=== PATIENT | female | born 1985 | race Two or more races ===

== ENCOUNTER 2024-11-26 18:45 | Emergency (ER) | payer SELFPAY ==
[~2024-11-26] VITALS: Ht 162.6 cm; Wt 126.1 kg
[2024-11-26 18:55] VITALS: BP 140/105; PULSE 117; RESP 20; TEMP 98.9; O2SAT 99
--- NOTE | 2024-11-26 18:59 | ED.PDOC ---
History of Present Illness HPI Comments 39 year old female with a Hx of Anxiety presents to the ED for the c/c of 11/11 Left Sided Chest Tightness w/ associated Dizziness, N/, and Left Arm Pain. Pt states that her symptoms started this morning, and have progressively worsened, prompting her visit to the ED. Pts BP was noted to be 153/105 in the 120's upon triage assessment. No other associated symptoms, modifiers, recent injuries or sick contacts present at this time. Chief Complaint: High Blood Pressure Time Seen by MD: 18:56 Reviewed Notes: Nurses Notes, Medications, Allergies Information Source: Patient Mode of Arrival: Ambulatory Severity: Moderate Timing: Hours Duration: Since onset, Hours Prehospital treatment: None Past Medical History PAST MEDICAL HISTORY: Anxiety Surgical History: Denies all surgeries [employer] SENIOR ASSOCIATE History: Unknown Family History Family History: Unknown Social History Smoker: Non-Smoker Alcohol: Denies ETOH Use Drugs: Denies Drug Use Lives In: Home Constitutional: denies: chills, diaphoresis, fatigue, fever, malaise, sweats, weakness, others EENTM: denies: blurred vision, double vision, ear bleeding, ear discharge, ear drainage, ear pain, ear ringing, eye pain, eye redness, hearing loss, mouth pain, mouth swelling, nasal discharge, nose bleeding, nose congestion, nose pain, photophobia, tearing, throat pain, throat swelling, voice changes, others Respiratory: denies: cough, hemoptysis, orthopnea, SOB at rest, shortness of breath, SOB with excertion, stridor, wheezing, others Cardiovascular: reports: chest pain; denies: dizzy spells, diaphoresis, Dyspnea on exertion, edema, irregular heart beat, left arm pain, lightheadedness, palpitations, PND, syncope, others Gastrointestinal: reports: nausea; denies: abdomen distended, abdominal pain, blood streaked bowels, constipated, diarrhea, dysphagia, difficulty swallowing, hematemesis, melena, poor appetite, poor fluid intake, rectal bleeding, rectal pain, vomiting, others Genitourinary: denies: abnormal vagina bleeding, burning, dyspareunia, dysuria, flank pain, frequency, hematuria, incontinence, pain, , vagina discharge, urgency, others Neurological: reports: dizziness; denies: fainting, headache, left sided numbness, left sided weakness, numbness, paresthesia, pre-existing deficit, right sided numbness, right sided weakness, seizure, speech problems, tingling, tremors, weakness, others Musculoskeletal: denies: back pain, gout, joint pain, joint swelling, muscle pain, muscle stiffness, neck pain, others Integumetry: denies: bruises, change in color, change in hair/nails, dryness, laceration, lesions, lumps, rash, wounds, others Allergic/Immunocompromised: denies: Difficulty Healing, Frequent Infections, Hives, Itching, others Hematologic/Lymphatic: denies: anemia, blood clots, easy bleeding, easy bruising, swollen glands, others Endocrine: denies: excessive hunger, excessive sweating, excessive thirst, excessive urination, flushing, intolerance to cold, intolerance to heat, unexplained weight gain, unexplained weight loss, others Psychiatric: denies: anxiety, bipolar disorder, depression, hopeless, panic disorder, schizophrenia, sleepless, suicidal, others All Other Systems: Reviewed and Negative Physical Exam General Appearance: Mild Distress, Normal, Obese HEENT: Normal ENT Inspection, Pharynx Normal, TMs Normal Neck: Full Range of Motion, Non-Tender, Normal, Normal Inspection Respiratory: Chest Non-Tender, Lungs Clear, No Accessory Muscle Use, No Respiratory Distress, Normal Breath Sounds Cardiovascular: No Edema, No JVD, No Murmur, Normal Peripheral Pulses, Regular Rate/Rhythm, Tachycardia Breast Exam: Deferred Gastrointestinal: No Organomegaly, Non Tender, No Pulsatile Mass, Normal Bowel Sounds, Soft Genitalia: Deferred Pelvic: Deferred Rectal: Deferred Extremities: No calf tenderness, Normal capillary refill, Normal inspection, Normal range of motion, Non-tender, No pedal edema Musculoskeletal : Apperance: Normal Neurologic: Alert, sales activity manager II-XII nml as Tested, No Motor Deficits, Normal Affect, Normal Mood, No Sensory Deficits Cerebellar Function: Normal Reflexes: Normal Skin: Dry, Normal Color, Warm Lymphatic: No Adenopathy Was a procedure done? Was a procedure done?: No Differential Dx Considerations may include: Differential diagnosis includes but not limited to: angina, myocardial infarction, pulmonary embolus, pleurisy, musculoskeletal etiology and others X-Ray, Labs, Meds, VS Vital Signs Date Time Temp Pulse Resp B/P (MAP) Pulse Ox O2 Delivery O2 Flow Rate FiO2 11/26/24 18:55 98.9 117 20 140/105 (117) 99 98.9 Lab Test 11/26/24 19:08 Range/Units White Blood Count 11.5 H 4.4-10.8 10^3/uL Red Blood Count 5.17 4.0-5.20 10^6/uL Hemoglobin 14.3 12.2-16.2 g/dL Hematocrit 42.8 36.0-46.0 % Mean Corpuscular Volume 82.8 80.0-100.0 fL Mean Corpuscular Hemoglobin 27.7 L 28.0-32.0 pg Mean Corpuscular Hemoglobin Concent 33.4 32.0-36.0 g/dL Red Cell Distribution Width 14.4 H 11.8-14.3 % Platelet Count 358 140-450 10^3/uL Mean Platelet Volume 8.1 6.9-10.8 fL Neutrophils (%) (Auto) 71.3 37.0-80.0 % Lymphocytes (%) (Auto) 21.0 10.0-50.0 % Monocytes (%) (Auto) 4.9 0.0-12.0 % Eosinophils (%) (Auto) 1.7 0.0-7.0 % Basophils (%) (Auto) 1.1 0.0-2.0 % Neutrophils # (Auto) 8.2 1.6-8.6 10 ^3/uL Lymphocytes # (Auto) 2.4 0.4-5.4 10 ^3/uL Monocytes # (Auto) 0.6 0-1.3 10 ^3/uL Eosinophils # (Auto) 0.2 0-0.8 10 ^3/uL Basophils # (Auto) 0.1 0-0.2 10 ^3/uL Nucleated Red Blood Cells 0.2 % Sodium Level 141 136-145 mmol/L Potassium Level 3.6 3.5-5.1 mmol/L Chloride Level 104 98-107 mmol/L Carbon Dioxide Level 25 20-31 mmol/L Anion Gap 12 5-15 Blood Urea Nitrogen 14 9-23 mg/dL Creatinine 0.73 0.550-1.02 mg/dL Glomerular Filtration Rate Calc 109 >90 mL/min BUN/Creatinine Ratio 19.2 10.0-20.0 Serum Glucose 94 74-106 mg/dL Calcium Level 9.6 8.7-10.4 mg/dL Magnesium Level 1.8 1.6-2.6 mg/dL Troponin I High Sensitivity < 3 L </=34 ng/L Time of 1ST Reevaluation: 19:26 Reevaluation 1ST: Unchanged Patient Education/Counseling: Diagnosis, Treatment, Need For Follow Up Family Education/Counseling: No Family Present SEPSIS Sepsis Screen Physician Orders Electrocardigram (11/26/24 18:56) Test, Urine (11/26/24 19:02) Vital Signs Date Time Temp Pulse Resp B/P (MAP) Pulse Ox O2 Delivery O2 Flow Rate FiO2 11/26/24 18:55 98.9 117 20 140/105 (117) 99 98.9 Laboratory Tests Test 11/26/24 19:08 White Blood Count 11.5 10^3/uL (4.4-10.8) H Departure 1 Departure Time of Disposition: 21:00 Impression: Primary Impression: Chest pain Disposition: 07 LEFT AWOL/ELOPED Condition: Fair Critical Care Note Critical Care Time?: No Stability Stability form required: No Heart Score Heart Score: Heart Score Response (Comments) Value History N/A 0 EKG N/A 0 Age N/A 0 Risk Factors N/A 0 Troponin N/A 0 Total 0 I personally scribed for ZENY LLANOS MD ([email or web address]) on 11/26/24 at 18:59. Electronically submitted by Alvin Jonas ([email or web address]). ZENY LLANOS MD Nov 26, 2024 18:59
[2024-11-26] MEDS ORDERED: LISINOPRIL 5 MG TAB PO ONE (19:00)
[2024-11-26 19:20] LABS: Hematocrit 42.8 % (36.0-46.0); Hemoglobin 14.3 g/dL (12.2-16.2); Mean Corpuscular Hemoglobin 27.7 pg (28.0-32.0); Mean Corpuscular Volume 82.8 fL (80.0-100.0); Nucleated Red Blood Cells % 0.2 %
[2024-11-26 19:29] LABS: Chloride 104 mmol/L (98-107); Potassium 3.6 mmol/L (3.5-5.1); Sodium 141 mmol/L (136-145)
[2024-11-26 19:30] LABS: Anion Gap 12 (5-15); Carbon Dioxide 25 mmol/L (20-31)
[2024-11-26 19:31] LABS: Calcium 9.6 mg/dL (8.7-10.4)
[2024-11-26 19:35] LABS: BUN/Creatinine Ratio 19.2 (10.0-20.0); Blood Urea Nitrogen 14 mg/dL (9-23); Glucose 94 mg/dL (74-106)
[2024-11-26 19:36] LABS: Magnesium 1.8 mg/dL (1.6-2.6)
== END 2024-11-26 19:38 | disposition left against medical advice (07) ==
LOC: ER 18:45
DX: R07.89 Other chest pain (principal); R42 Dizziness and giddiness; M79.602 Pain in left arm; F41.9 Anxiety disorder, unspecified
CPT/HCPCS: 36415; 80048; 83735; 84484; 85025